=== PATIENT | female | born 2000 | race African-American/Black ===

== ENCOUNTER 2020-07-23 08:49 | Outpatient (RCR) | payer OTHER, SELFPAY | END 2020-09-08 23:59 | LOC: IMMUN 08:49 | PROVIDERS: PCP Pediatrics; Referring Provider Family Medicine; Visit Provider Family Medicine | DX: Z23 Encounter for immunization (principal) | CPT/HCPCS: 0001A; 0002A; 91300 ==

== ENCOUNTER 2021-04-27 16:09 | Outpatient (CLI) | payer OTHER, SELFPAY | END 2021-04-27 23:59 | disposition short-term general hospital (02) | LOC: IMMUN 04-30 16:09 | PROVIDERS: Visit Provider Family Medicine | DX: Z23 Encounter for immunization (principal) ==